=== PATIENT | female | born 1980 | race Caucasian/White ===

== ENCOUNTER → 2019-09-18 | Outpatient (CLI) | payer BC ==
--- NOTE | 2019-09-18 12:54 | CT ---
EXAM DESCRIPTION: Abdomen/Pelvis w/Contrast CLINICAL HISTORY: 39 years Female, RIGHT LOWER QUADRANT PAIN COMPARISON: None available. TECHNIQUE: Contiguous 3 mm axial images were obtained from the lung bases to the level of the proximal femora after the administration of intravenous and oral contrast. Sagittal and coronal reconstructions were reviewed. FINDINGS: THORAX: The imaged lower thorax demonstrates no gross abnormality. LIVER: 2.8 x 2.1 cm hypodensity along the ligamentum teres most likely represents focal area of fatty infiltration. GALLBLADDER: Surgically absent. PANCREAS: Appears normal with no cystic or solid lesions. SPLEEN: Normal ADRENAL GLANDS: Indeterminate 2.3 cm left adrenal nodule. Right adrenal gland appears normal. KIDNEYS: Both kidneys enhance symmetrically with no hydronephrosis or nephrolithiasis or perinephric fluid collections. No focal masses are identified. The visualized ureters appear grossly unremarkable. STOMACH: Not well distended limiting detailed evaluation. SMALL BOWEL: The small bowel loops demonstrate variable degrees of distention with no abnormal dilatation or other signs to suggest bowel obstruction. LARGE BOWEL: Majority of the colon is not well-distended limiting detailed evaluation. The appendix is well-visualized and appears normal No evidence of free intraperitoneal air or fluid. RETROPERITONEUM: The abdominal aorta is nonaneurysmal with moderate atherosclerosis. The inferior vena cava is normal in size and caliber. No abnormally enlarged retroperitoneal lymph nodes are identified. URINARY BLADDER:The urinary bladder is well-distended with no gross abnormality. Indeterminate 1.1 cm cystic focus is noted in the endometrial stripe in the uterine fundus. Bilateral ovaries appear normal. ADDITIONAL FINDINGS: None. BONES: Mild degenerative changes are identified in the visualized bones.No evidence of osteophytic or osteoblastic lesions. IMPRESSION: 1. No acute intra-abdominal or intrapelvic process. 2. Indeterminate 2.3 cm left adrenal nodule. 3. Indeterminate 1.1 cm cystic focus is noted in the endometrial stripe of the uterine fundus. Pelvic ultrasound is recommended for further evaluation. This exam was performed according to our departmental dose-optimization program, which includes automated exposure control, adjustment of the mA and/or kV according to patient size and/or use of iterative reconstruction technique. Electronically signed by: Robyn Silverio MD 09/18/2019 12:52 PM CDT
== END ==
LOC: CT 10:54
PROVIDERS: ATTEND Internal Medicine Gastroenterology
DX: E27.9 Disorder of adrenal gland, unspecified (principal); N85.9 Noninflammatory disorder of uterus, unspecified; R63.4 Abnormal weight loss

== ENCOUNTER 2019-10-03 05:52 | Day surgery (SDC) | payer BC, OTHER ==
[2019-10-03] MEDS ORDERED: LACTATED RINGERS 1,000 ML ONE (07:08)
[2019-10-03] MEDS ORDERED: SODIUM CHLORIDE 0.9% (FLUSH) 10 ML SYG ONE (07:14)
[2019-10-03] MEDS ORDERED: LACTATED RINGERS 1,000 ML IVS ONE (08:10)
--- NOTE | 2019-10-03 09:56 | OP ---
DATE OF PROCEDURE: 10/03/19 PREOPERATIVE DIAGNOSIS: 1. Nausea and vomiting. 2. Bilateral lower quadrant pains. 3. Diarrhea. 4. Weight loss. POSTOPERATIVE DIAGNOSIS: 1. Gastritis. 2. Diverticulosis. 3. Colonic polyps. PROCEDURE: 1. EGD plus biopsy. 2. Colonoscopy plus biopsy plus polypectomy. SURGEON: Luís Huffman MD. COMPLICATIONS: None apparent. BLOOD LOSS: None. MEDICATIONS: Monitored anesthesia care. DESCRIPTION OF PROCEDURE: Informed consent was obtained prior to sedation. The preprocedure cardiopulmonary assessment was satisfactory. The patient was placed in the left lateral decubitus position and was sedated. The tip of the Olympus esophagogastroduodenoscope was inserted in the oropharynx and carefully advanced through the cricopharyngeus into the esophageal lumen. Exam of the upper GI tract was performed. Direct and retroflexed views in the stomach were utilized to view all the gastric mucosa. The following were the findings on the upper endoscopy: 1. Esophagus: Normal. There is no esophagitis, Nunez's or other mucosal pathology in the esophagus. 2. Stomach: Mild antral gastritis. This was biopsied with cold biopsy forceps. There were no significant ulcers in the stomach, no evidence of neoplasm or gastric outlet obstruction. 3. Duodenum: The duodenum was unremarkable down to the third portion. Biopsies were obtained of the second portion with cold biopsy forceps for sprue. The patient was subsequently turned 180 degrees. Colonoscopy was then performed. A digital rectal exam was unremarkable. The tip of the Olympus colonoscope was inserted in the rectum and guided over to the cecum. The cecum was identified by locating the ileocecal valve and appendiceal orifice. The prep a [place] Bowel Prep Score of 8. It was excellent overall. The terminal ileum was seen by intubating the ileocecal valve. The findings on the colon were as follows: 1. Terminal ileum: The terminal ileum is unremarkable in appearance endoscopically. Biopsies were obtained with the cold biopsy forceps to rule out underlying microscopic changes of Crohn's. 2. Colon: The patient had no endoscopic evidence of inflammatory bowel disease. Endoscopically, the mucosa was normal. Biopsies were taken throughout the colon with cold biopsy forceps to rule out microscopic colitis. The patient does have 3 polyps in her colon. There are 2 in the descending colon and 1 in the proximal rectum. They were all sessile and were between 3 and 4 mm. The 3 polyps were removed with a cold snare and recovered. The patient had some sigmoid diverticulosis. Otherwise, the colon is unremarkable in appearance. The colonoscope was removed and the patient was sent to Recovery. RECOMMENDATIONS: Followup all the biopsy results. Further workup and treatment will be done depending on the results of the biopsies. #[id number] cc: Neela Fleming MD [facility]
[2019-10-03] MEDS ORDERED: LIDOCAINE 1% 10 ML VIAL INJ ONE (10:00)
[2019-10-03] MEDS ORDERED: PROPOFOL 200 MG/20 ML VIAL IV ONE (10:00)
[2019-10-03 11:04] VITALS: BP 139/87; TEMP 98.3; O2SAT 99
== END 2019-10-03 10:35 | disposition home or self-care (01) ==
LOC: AMB 05:52
PROVIDERS: ATTEND Internal Medicine Gastroenterology
DX: R19.7 Diarrhea, unspecified (principal); R63.4 Abnormal weight loss; K63.5 Polyp of colon; K62.1 Rectal polyp; K31.9 Disease of stomach and duodenum, unspecified; K29.70 Gastritis, unspecified, without bleeding; K21.9 Gastro-esophageal reflux disease without esophagitis; K57.30 Diverticulosis of large intestine without perforation or abscess without bleeding; F17.290 Nicotine dependence, other tobacco product, uncomplicated; Z88.0 Allergy status to penicillin; Z87.891 Personal history of nicotine dependence
CPT/HCPCS: 00813; 43239; 45380; 45385; A4216; J3490; J7120